=== PATIENT | female | born 1970 | race Caucasian/White ===

== ENCOUNTER 2019-01-29 04:14 | Emergency (ER) | payer MEDICARE, OTHER ==
[~2019-01-29] VITALS: Ht 167.6 cm; Wt 74.8 kg
[~2019-01-29 04:14] MED LIST: BUPR1FIL3 SL; CARI350T PO; CLON2TAB11 PO; GABA800T11 PO; LORA1TAB PO; LORA2TAB PO; METH10TA2 PO; OXYC30TA2; PANT40TA2 PO; SUCR1ORA PO; ZOLP10TA2; ZOLP10TA6 PO
[2019-01-29] MEDS ORDERED: CLONAZEPAM 0.5 MG TABLET PO ONE (04:45)
[2019-01-29] MEDS ORDERED: PROCHLORPERAZINE MALEATE 10 MG TABLET PO ONE (04:45)
--- NOTE | 2019-01-29 04:45 | NUR ---
MD AT BEDSIDE FOR HX AND PHYSICAL
[2019-01-29] MEDS ORDERED: CLONAZEPAM 1 MG TABLET ONE (04:51)
--- NOTE | 2019-01-29 04:51 | NUR ---
PT GOT UP FROM [facility] AND YELLED FROM ROOM: "CAN I GET SOMETHING RIGHT NOW?" PT ABLE TO TOLERATE PO MEDS WENT BACK TO [facility], PT YUDITH MIDDLETONAILSX2 UP, BED AT LOWEST POSITION MONITORED ACCORDINGLY
[2019-01-29] MEDS ORDERED: PROCHLORPERAZINE MALEATE 10 MG TABLET ONE (04:52)
--- NOTE | 2019-01-29 04:57 | NUR ---
PT AMBULATORY W/ STABLE GAIT, WEARING ANKLE SUPPORT ON R ANKLE, AND SOFT CERVICAL COLLAR. PT STATS: " IT HELPS WITH MY HORMONES" ALL BELONGINGS W/ PT Patient discharged to home in stable conditon. Written and verbal after care instructions given. Patient verbalizes understanding of instructions.
[2019-01-29 04:59] VITALS: BP 127/84
== END 2019-01-29 05:01 | disposition home or self-care (01) ==
LOC: ER 04:17 → MERGE 04:17 → ER 05:01
DX: F13.20 Sedative, hypnotic or anxiolytic dependence, uncomplicated (principal); F41.9 Anxiety disorder, unspecified; F41.0 Panic disorder [episodic paroxysmal anxiety]; F32.9 Major depressive disorder, single episode, unspecified; Z90.710 Acquired absence of both cervix and uterus; Z88.8 Allergy status to other drugs, medicaments and biological substances; Z79.899 Other long term (current) drug therapy
CPT/HCPCS: 99283; Q0164; A4663

== ENCOUNTER 2022-03-02 15:30 | Inpatient (IN) | payer MEDICARE, OTHER ==
[~2022-03-02] VITALS: Ht 167.6 cm; Wt 83.9 kg
[~2022-03-02 15:30] MED LIST changes: +METH-817 PO; -METH10TA2 PO
[2022-03-02] MEDS ORDERED: IV NORMAL SALINE 1000 ML BAG IV ONE (15:45)
[2022-03-02] MEDS ORDERED: NALOXONE HCL 0.4 MG/ML AMPUL IV ONE (16:15)
[2022-03-02] MEDS ORDERED: CLON2TAB PO (16:18)
[2022-03-02] MEDS ORDERED: OXYC10TA49 PO (16:18)
[2022-03-02] MEDS ORDERED: ESZO3TAB27 PO (16:18)
[2022-03-02] MEDS ORDERED: BACL20TA PO (16:18)
[2022-03-02] MEDS ORDERED: HYDR-3980 PO (16:18)
[2022-03-02] MEDS ORDERED: PROC10TA13 PO (16:18)
[2022-03-02] MEDS ORDERED: CLOB20TA3 PO (16:18)
[2022-03-02 16:25] LABS: HEMATOCRIT 29.8 % (31.2-41.9); MEAN CORPUSCULAR HEMOGLOBIN 25.1 uug (24.7-32.8); MEAN CORPUSCULAR VOLUME 79.5 fL (75.5-95.3); PLATELET COUNT (AUTO) 145 K/uL (179-408)
[2022-03-02 16:29] LABS: *BILIRUBIN,URIN NEGATIVE (NEGATIVE); *BLOOD, URINE 3+ (NEGATIVE); *CLARITY,URINE CLEAR (CLEAR); *COLOR,URINE YELLOW (YELLOW); *KETONES,URINE NEGATIVE (NEGATIVE); LEUKOCYTE ESTERASE ,URINE TRACE (NEGATIVE); NITRITE, URINE NEGATIVE (NEGATIVE); PH,URINE 6.5 (5.0-8.0); UGLUCOSE NEGATIVE (NEGATIVE)
[2022-03-02] MEDS ORDERED: NALOXONE HCL 0.4 MG/ML AMPUL ONE (16:29)
[2022-03-02 16:36] LABS: CARBON DIOXIDE 29 mmol/L (21-32); CHLORIDE 109 mmol/L (98-107); CREATININE 0.7 mg/dL (0.6-1.3); GLUCOSE 116 mg/dL (74-106); POTASSIUM 3.6 mmol/L (3.5-5.1); UREA NITROGEN, BLOOD 23 mg/dL (7-18)
[2022-03-02 16:49] LABS: ACETAMINOPHEN < 2.0 ug/mL (10-30); ALANINE AMINOTRANSFERASE 30 U/L (14-59); ALKALINE PHOSPHATASE 138 U/L (50-136); ASPARTATE AMINOTRANSFERASE 46 U/L (15-37); BILIRUBIN,DIRECT 0.1 mg/dL (0.0-0.2); BILIRUBIN,TOTAL 0.4 mg/dL (0.2-1.0); TOTAL PROTEIN, SERUM 5.5 g/dL (6.4-8.2)
[2022-03-02 16:51] LABS: ETHANOL < 3 MG/DL (0-0)
[2022-03-02 16:54] LABS: *AMPHETAMINE, URINE NEGATIVE (NEGATIVE); *CANNABINOID, URINE NEGATIVE (NEGATIVE); *COCCAINE, URINE NEGATIVE (NEGATIVE); *OPIATE, URINE POSITIVE (NEGATIVE); *PHENCYCLIDINE SCREEN,URINE NEGATIVE (NEGATIVE)
[2022-03-02] MEDS ORDERED: AZITHROMYCIN IV 500 MG in IV DEXTROSE 5% 250 ML IV ONE (17:00)
[2022-03-02] MEDS ORDERED: CEFTRIAXONE 1 G in IV DEXTROSE 5% 50 ML IV ONE (17:00)
[2022-03-02] MEDS ORDERED: IV NORMAL SALINE 500 ML BAG IV ONE ×3 (17:00→19:45)
[2022-03-02] MEDS ORDERED: CEFTRIAXONE /D5W 50ML IVPB **ER PYXIS IV ONE (17:07)
[2022-03-02] MEDS ORDERED: AZITHROMYCIN 500MG/ D5W 250ML IVPB **ER PYXIS ONLY IV ONE (17:07)
[2022-03-02 17:32] LABS: SQUAMOUS EPITHELIAL CELL,UR FEW /HPF (NONE SEEN); WBC,URINE 0-3 /HPF (0-3)
--- NOTE | 2022-03-02 17:52 | NUR ---
SBP levels are 80's, Dr Douglas notified.
--- NOTE | 2022-03-02 19:01 | NUR ---
Patient remains non-verbal & intermittently moans when position changes were done, pending telemetry bed & nurse at this time. Nursing report given to ER nurse
[2022-03-02] MEDS ORDERED: MAGNESIUM HYDROXIDE 30 ML LIQUID UDC PO PRN (20:45)
[2022-03-02] MEDS ORDERED: LORAZEPAM 2 MG/1 ML VIAL IV PRN (20:45)
[2022-03-02] MEDS ORDERED: MORPHINE SULFATE 4 MG/1 ML DISP.SYRIN IV PRN (20:45)
--- NOTE | 2022-03-02 21:05 | NUR ---
Pt. admitted to telemetry unit room 316, under care of Dr. Love. Report given to MCKENNA Alvarez. Belongs List completed.
--- NOTE | 2022-03-02 21:10 | NUR ---
Received patient from ER via gurney, alert to self in no acute distress. Sinus rhythm on tele. Routine admission care rendered. Oriented to room, BR, TV and call light. Care plan initiated. needs assessed and attended to. Call light placed within easy reach.
[2022-03-02 21:15] VITALS: BP 133/67
[2022-03-02] MEDS: IV NS 1000 ML 1,000 ML IV PRN (21:43)
[2022-03-02] MEDS ORDERED: PIPERACILLIN SODIUM/TAZOBACTAM 3.375 G in IV DEXTROSE 5% 50 ML IV SCH (22:00)
[2022-03-02] MEDS: DOCUSATE SODIUM 100 MG CAPSULE PO SCH (22:59)
[2022-03-03 00:11] VITALS: BP 125/68
[2022-03-03] MEDS ORDERED: PIPERACILLIN SODIUM/TAZO 3.375 GM VIAL ONE (00:29)
[2022-03-03] MEDS: ACETAMINOPHEN 325 MG TABLET PO PRN ×2 (03:05→17:15)
[2022-03-03 04:00] VITALS: BP 111/55
[2022-03-03] MEDS: PANTOPRAZOLE SODIUM 40 MG TABLET.DR PO SCH (06:16)
[2022-03-03 07:02] LABS: HEMATOCRIT 27.3 % (31.2-41.9); MEAN CORPUSCULAR HEMOGLOBIN 25.9 uug (24.7-32.8); MEAN CORPUSCULAR VOLUME 80.6 fL (75.5-95.3); PLATELET COUNT (AUTO) 136 K/uL (179-408)
[2022-03-03] MEDS: PIPERACILLIN SODIUM/TAZOBACTAM 3.375 G in IV DEXTROSE 5% 100 ML IV SCH ×4 (07:12→22:00)
[2022-03-03 07:27] LABS: ALANINE AMINOTRANSFERASE 27 U/L (14-59); ALKALINE PHOSPHATASE 119 U/L (50-136); ASPARTATE AMINOTRANSFERASE 42 U/L (15-37); BILIRUBIN,TOTAL 0.4 mg/dL (0.2-1.0); CARBON DIOXIDE 26 mmol/L (21-32); CHLORIDE 110 mmol/L (98-107); CHOLESTEROL 117 mg/dL (<200); CREATININE 0.5 mg/dL (0.6-1.3); GLUCOSE 97 mg/dL (74-106); HDL CHOLESTEROL 42 mg/dL (40-60); MAGNESIUM 1.7 mg/dL (1.8-2.4); PHOSPHOROUS 2.6 mg/dL (2.5-4.9); POTASSIUM 3.4 mmol/L (3.5-5.1); TOTAL PROTEIN, SERUM 4.9 g/dL (6.4-8.2); TRIGLYCERIDES 77 MG/DL (30-150); UREA NITROGEN, BLOOD 17 mg/dL (7-18)
[2022-03-03 07:28] LABS: IRON, SERUM 9 ug/dL (50-175)
[2022-03-03 07:42] LABS: THYROID STIMULATING HORMONE 1.167 mIU/mL (0.358-3.740)
[2022-03-03 08:20] VITALS: BP 80/41
[2022-03-03] MEDS: GABAPENTIN 400 MG CAPSULE PO SCH ×3 (09:11→17:08)
[2022-03-03] MEDS ORDERED: MAGNESIUM OXIDE 400 MG TABLET PO ONE (09:30)
[2022-03-03] MEDS ORDERED: POTASSIUM CHLORIDE 20 MEQ TAB.PRT.SR PO ONE (09:45)
[2022-03-03] MEDS ORDERED: IV NS 1000 ML 1,000 ML IV ONE (10:15)
--- NOTE | 2022-03-03 10:56 | NUR ---
Pt's BP is low, notified MD, administered NS 1liter bolus. Will reassess and monitor pt. No complaints of dizziness, intermittently sleeping but easily arousable.
[2022-03-03 11:57] VITALS: BP 80/41
[2022-03-03] MEDS ORDERED: CLON1TAB12 PO (12:11)
[2022-03-03] MEDS ORDERED: PREG200C28 PO (12:20)
[2022-03-03] MEDS ORDERED: TIZA4TAB5 PO (12:20)
[2022-03-03] MEDS ORDERED: DEXT10TA19 PO (12:20)
--- NOTE | 2022-03-03 13:00 | NUR ---
Pt yelling constantly, reoriented pt but resumes yelling a few minutes later. Pt is a/o x 1, forgetful, aggitated. Psych consult completed and medications adjusted per MD. Pt IV site infiltrated, placed ice pack and elevated. Removed IV access, Zosyn unable to administer due to no IV. Requested midline insertion, multiple PIV attempts, no viable veins, pt noncompliant.
[2022-03-03] MEDS ORDERED: CLONAZEPAM 0.5 MG TABLET PO SCH (14:00)
[2022-03-03] MEDS: PREGABALIN 100 MG CAPSULE PO SCH ×2 (14:59→17:09)
[2022-03-03] MEDS: LORAZEPAM 1 MG TABLET PO SCH ×2 (14:59→21:00)
[2022-03-03] MEDS ORDERED: LORAZEPAM 1 MG TABLET PO SCH (15:00)
--- NOTE | 2022-03-03 15:43 | NUR ---
Social work consult was requested for a patient on [facility] for substance abuse resources. Patient is 51-year-old female admitted to the hospital for encephalopathy and sepsis. Patient is alert and oriented X1. Patient appears confused and disoriented. Patient could not state the date, location, or situation. Patient appears lethargic. Patient presents with depressed mood and congruent affect. SW was unable to ascertain primary contact information. SW was unable to ascertain history of substance abuse. SW was unable to ascertain history of psychiatric diagnosis. SW will follow up with patient to provide resources.
[2022-03-03 17:08] VITALS: BP 94/39
[2022-03-03 20:00] VITALS: BP 86/33
[2022-03-03] MEDS: DOCUSATE SODIUM 100 MG CAPSULE PO SCH (21:00)
[2022-03-04] VITALS: BP 136/62
[2022-03-04] MEDS ORDERED: MORPHINE SULFATE 2 MG/1 ML DISP.SYRIN IM PRN (02:00)
[2022-03-04] MEDS: LORAZEPAM 1 MG TABLET PO SCH ×4 (04:12→21:03)
--- NOTE | 2022-03-04 06:00 | NUR ---
[id number] CONT. WITH STABLE VS. PT HAD LOW BP AT BEGINNING OF SHIFT WITH SYSTOLIC OF 86. PT RECEIVED NS FLUID BOLUS(1L-STARTED ON PREVIOUS SHIFT). BP HAS BEEN IMPROVING WITH BP SYSTOLIC OF 136(TAKEN ON RIGHT L.LEG). PT HAS BEEN CONFUSED AND VERY AGITATED. PT ALSO HAD C/O PAIN VIA LEFT LEG. PT'S LEFT HIP HAS REDNESS AND TENDERNESS. RADIOLOGIST PHYSICIAN CESAR INFORMED AND STATED THAT SHE WILL EVAL PT IN AM. PT C/O SEVERE PAIN FROM LEFT LEG. CHRIS SY CONTACTED AND ORDERED MS 2MG IVP Q4HRS PRN C/O PAIN AND DUPLEX OF SHANTAL LOWER EXTREMITIES. PT HAS F/C I/P-U/O IS >500CC-FIDELINA/CLR. PT MED WITH MS 2MG SLOW IVP. PT STATES RELIEF AFTER MED. PT ALSO REQUESTED MED FOR SLEEP. PT HAS ORD. FOR ATIVAN(WAS HELD EARLIER DUE TO PT'S LOW BP). PHARM. CONTACTED AND STATED THAT IT WAS OK FOR PT TO HAVE ATIVAN 2MG PO. PT SLIGHTLY LESS AGITATED BUT CONT. TO USE THE CALL LIGHT FREQUENTLY AND PT ALSO STATES THAT SHE WANTS TO GO HOME. N.SUPERV CONTACTED EARLIER ALSO TO EVAL PT BECAUSE SHE KEPT STATING THAT SHE WANTED TO LEAVE NOW BUT N.SUPERV. MARGARETTE WITNESSED THAT THE PT'S GAIT WAS UNSTABLE. PT ALSO HAS BEEN SLIGHT CONFUSED AT TIMES BUT SHE IS AWARE THAT SHE IS IN THE HOSPITAL. GEN. COND HAS BEEN STABLE BUT GUARDED. PT ENDORSED TO MAGGIE FITZGERALD RN
[2022-03-04] MEDS: PIPERACILLIN SODIUM/TAZOBACTAM 3.375 G in IV DEXTROSE 5% 100 ML IV SCH ×3 (06:32→22:11)
[2022-03-04] MEDS: PANTOPRAZOLE SODIUM 40 MG TABLET.DR PO SCH (06:50)
[2022-03-04 07:51] LABS: HEMATOCRIT 27.4 % (31.2-41.9); MEAN CORPUSCULAR HEMOGLOBIN 25.5 uug (24.7-32.8); MEAN CORPUSCULAR VOLUME 78.6 fL (75.5-95.3); PLATELET COUNT (AUTO) 143 K/uL (179-408)
[2022-03-04 08:14] VITALS: BP 104/51
[2022-03-04 08:16] LABS: BILIRUBIN,DIRECT 0.1 mg/dL (0.0-0.2); BILIRUBIN,TOTAL 0.3 mg/dL (0.2-1.0); CREATININE 0.6 mg/dL (0.6-1.3); MAGNESIUM 1.6 mg/dL (1.8-2.4); PHOSPHOROUS 3.1 mg/dL (2.5-4.9); POTASSIUM 3.5 mmol/L (3.5-5.1); TOTAL PROTEIN, SERUM 5.2 g/dL (6.4-8.2)
[2022-03-04] MEDS: PREGABALIN 100 MG CAPSULE PO SCH ×3 (08:57→16:47)
[2022-03-04] MEDS: GABAPENTIN 400 MG CAPSULE PO SCH ×3 (08:58→16:47)
[2022-03-04] MEDS: MORPHINE SULFATE 2 MG/1 ML DISP.SYRIN IV PRN ×3 (08:59→20:29)
[2022-03-04] MEDS ORDERED: MAGNESIUM OXIDE 400 MG TABLET PO ONE (09:15)
--- NOTE | 2022-03-04 10:50 | NUR ---
Social work consult was requested for a patient on [facility] for substance abuse resources. Patient is 51-year-old female. Patient is alert and oriented X4. Patient appears lethargic. Patient presents with anxious mood and congruent affect. Patient states her primary supervisor contact and service clerks is her sister, Kaylin Rivas. ELIZABET was unable to ascertain the contact information because patient does not have her phone at the hospital. Patient states she has two caregivers from [facility], Destini Navarro and Dahiana that are taking care of her cats while she is in the hospital. Patient states that she lives at [address] [address]. The patient states she is receiving disability and she is currently not driving. Patient denies a history of substance abuse. The toxicology report is positive for opiates and benzodiazepines but the patient states her cat scratched her arm but the scratch is clearly noted along the vein line and is consistent with a track flavio consistent with IV heroin abuse. Patient states she is getting the medication prescribed by her doctor. ELIZABET provided patient medication-assisted treatment referrals from [address] [address] ([phone]), [address] [address] ([phone]), [facility] [address] . ELIZABET placed the resources in the patients chart. Patient appeared unmotivated for treatment. Patient states she has a history of anxiety and ADHD and has a psychiatrist, Dr. Tristan Guevara, that she sees once a month. ELIZABET provided the patient with mental health resource for [facility] [address] [facility] , [place] [address] ([phone]). Patient denies suicidal or homicidal ideation. Patient states her discharge plan is to go home to [address] [place] [address].
[2022-03-04 11:37] VITALS: BP 82/41
[2022-03-04 16:30] VITALS: BP 86/37
--- NOTE | 2022-03-04 18:12 | NUR ---
Patient tolerated care well throughout shift with pain managed through medicinal interventions. IV site patent and intact. Patient requesting to leave but being educated about the possibilities if patient decides to leave against medical advice. Patient requesting to speak to Jeanna PEREZ but has already been spoken to on numerous other visits. Bed left in lowest position with call light within reach. Comfort measures provided. Will endorse information to PM nurse.
[2022-03-04 20:00] VITALS: BP 98/54
[2022-03-04] MEDS: DOCUSATE SODIUM 100 MG CAPSULE PO SCH (21:03)
[2022-03-04] MEDS: IV NS 1000 ML 1,000 ML IV PRN (23:01)
[2022-03-05 04:00] VITALS: BP 97/56
[2022-03-05] MEDS: PIPERACILLIN SODIUM/TAZOBACTAM 3.375 G in IV DEXTROSE 5% 100 ML IV SCH ×3 (05:51→22:04)
[2022-03-05] MEDS: MORPHINE SULFATE 2 MG/1 ML DISP.SYRIN IV PRN ×2 (06:03→09:13)
[2022-03-05 06:53] LABS: HEMATOCRIT 26.4 % (31.2-41.9); MEAN CORPUSCULAR HEMOGLOBIN 25.5 uug (24.7-32.8); MEAN CORPUSCULAR VOLUME 78.5 fL (75.5-95.3); PLATELET COUNT (AUTO) 157 K/uL (179-408)
[2022-03-05] MEDS: PANTOPRAZOLE SODIUM 40 MG TABLET.DR PO SCH (07:03)
[2022-03-05 07:05] LABS: CARBON DIOXIDE 28 mmol/L (21-32); CHLORIDE 108 mmol/L (98-107); CREATININE 0.5 mg/dL (0.6-1.3); GLUCOSE 103 mg/dL (74-106); MAGNESIUM 1.9 mg/dL (1.8-2.4); PHOSPHOROUS 3.8 mg/dL (2.5-4.9); POTASSIUM 3.2 mmol/L (3.5-5.1); UREA NITROGEN, BLOOD 7 mg/dL (7-18)
[2022-03-05] MEDS: LORAZEPAM 1 MG TABLET PO SCH ×4 (08:55→20:45)
[2022-03-05] MEDS: PREGABALIN 100 MG CAPSULE PO SCH ×3 (08:55→17:43)
[2022-03-05] MEDS: GABAPENTIN 400 MG CAPSULE PO SCH ×3 (08:57→17:43)
[2022-03-05] MEDS ORDERED: POTASSIUM CHLORIDE 20 MEQ TAB.PRT.SR PO ONE (10:00)
--- NOTE | 2022-03-05 10:39 | NUR ---
Clinical Social Work Note: ELIZABET made an APS report Intake ID # [id number] for suspicion of self-neglect. ELIZABET placed a copy in the patients chart.
[2022-03-05] MEDS: IV NS 1000 ML 1,000 ML IV PRN (10:51)
[2022-03-05] MEDS ORDERED: IV NS 1000 ML 1,000 ML IV ONE (11:15)
[2022-03-05 11:35] VITALS: BP 94/62
[2022-03-05] MEDS: ACETAMINOPHEN 325 MG TABLET PO PRN (15:18)
[2022-03-05 15:32] VITALS: BP 106/42
[2022-03-05 16:12] VITALS: BP 106/42
[2022-03-05] MEDS: DOCUSATE SODIUM 100 MG CAPSULE PO SCH (20:45)
[2022-03-05] MEDS ORDERED: MIRT-119 PO (23:45)
[2022-03-06] MEDS ORDERED: MIRTAZAPINE 15 MG TABLET PO SCH
[2022-03-06] MEDS: IV NS 1000 ML 1,000 ML IV PRN (04:21)
[2022-03-06] MEDS: PIPERACILLIN SODIUM/TAZOBACTAM 3.375 G in IV DEXTROSE 5% 100 ML IV SCH (05:30)
[2022-03-06] MEDS: PANTOPRAZOLE SODIUM 40 MG TABLET.DR PO SCH (06:28)
--- NOTE | 2022-03-06 06:50 | NUR ---
Patient requested Remeron 30 mg as she is taking this med at home, Leonor PEREZ notified and gave order. Patient refused diaper change at [id number], stated she just want to sleep. Call light placed within easy reach. Kept bed in locked and low position.
[2022-03-06 07:25] LABS: HEMATOCRIT 26.9 % (31.2-41.9); MEAN CORPUSCULAR HEMOGLOBIN 25.4 uug (24.7-32.8); MEAN CORPUSCULAR VOLUME 77.4 fL (75.5-95.3); PLATELET COUNT (AUTO) 225 K/uL (179-408)
--- NOTE | 2022-03-06 07:47 | NUR ---
Rec'd patient in bed, asleep, no respiratory distress noted; skin warm and dry to the touch. Patient able to wake up on verbal commands, patient denies any pain or discomfort, and prefers not to be bother at this time as she would like to continue sleeping. IV RFA infusing well, site intact. Safety measures in place and call light within reach; patient continues under 1:1 supervision and at bedside.
[2022-03-06 08:06] LABS: CREATININE 0.6 mg/dL (0.6-1.3); MAGNESIUM 1.8 mg/dL (1.8-2.4); PHOSPHOROUS 3.8 mg/dL (2.5-4.9); POTASSIUM 3.8 mmol/L (3.5-5.1)
[2022-03-06] MEDS: LORAZEPAM 1 MG TABLET PO SCH (08:52)
[2022-03-06] MEDS: PREGABALIN 100 MG CAPSULE PO SCH (08:52)
[2022-03-06] MEDS: GABAPENTIN 400 MG CAPSULE PO SCH (09:07)
[2022-03-06] MEDS ORDERED: DOXY-226 PO (10:20)
[2022-03-06] MEDS ORDERED: LORA-259 PO ×2 (10:20)
[2022-03-06 10:46] VITALS: BP 100/26
--- NOTE | 2022-03-06 11:59 | NUR ---
1100-Patient with orders to DC home, as per her request/FRETTED INSTRUMENTS INSPECTOR Jeanna King; patient was seen and evaluated by Psychiatrist, Adis BATISTA. and based on 's Adis's notes patient " She seems to be lucid and coherent. She seems to be cognitively intact and able to make her own decisions." Discharge education and education materials provided with good verbal understanding demonstration return. Per FRETTED INSTRUMENTS INSPECTOR Jeanna OSMAN hair catheter and DC mid line prior DC'NG patient. Mid line to MARILU single lumen dc'd, direct pressure applied to puncture site with no bleeding noted. Hair catheter dc'd arun. well, patient denies any discomfort/bladder discomfort, no hematuria. Diaper changed/cared provided. Discharge paperwork prepared, signed/inventory list signed. 12:10-Patient was picked up by caregiver (PERRY), patient was accompanied down to the car safely with all belongings. Patient left in good stable conditions, alert/oriented, denies pain. No respiratory distress noted. ARDEN INFANTE 2021 14:54
[2022-03-06] MEDS ORDERED: LORAZEPAM 1 MG TABLET PO SCH (21:00)
[2022-03-08] MEDS ORDERED: LORAZEPAM 1 MG TABLET PO SCH (09:00)
== END 2022-03-06 12:15 | disposition home or self-care (01) | DRG 871 ==
LOC: ER 15:30 → TELE3 19:33 → MEDSURG3 03-04 08:10
PROVIDERS: ADMIT Registered Nurse; ATTEND Registered Nurse
PROC: 05H633Z Insertion of Infusion Device into Left Subclavian Vein, Percutaneous Approach (ICD-10-PCS; principal; 2022-03-02)
PROC: B547ZZA Ultrasonography of Left Subclavian Vein, Guidance (ICD-10-PCS; 2022-03-02)
PROC: 05H533Z Insertion of Infusion Device into Right Subclavian Vein, Percutaneous Approach (ICD-10-PCS; 2022-03-03)
PROC: B546ZZA Ultrasonography of Right Subclavian Vein, Guidance (ICD-10-PCS; 2022-03-03)
DX: A41.9 Sepsis, unspecified organism (principal); G92.8 Other toxic encephalopathy; J96.01 Acute respiratory failure with hypoxia; R65.21 Severe sepsis with septic shock; J15.9 Unspecified bacterial pneumonia; F13.231 Sedative, hypnotic or anxiolytic dependence with withdrawal delirium; N39.0 Urinary tract infection, site not specified; F11.23 Opioid dependence with withdrawal; G40.909 Epilepsy, unspecified, not intractable, without status epilepticus; D64.9 Anemia, unspecified; E66.9 Obesity, unspecified; M79.7 Fibromyalgia; R29.6 Repeated falls; Z82.49 Family history of ischemic heart disease and other diseases of the circulatory system; Z83.3 Family history of diabetes mellitus; Z96.642 Presence of left artificial hip joint; G89.29 Other chronic pain; M19.90 Unspecified osteoarthritis, unspecified site; F90.9 Attention-deficit hyperactivity disorder, unspecified type; F10.10 Alcohol abuse, uncomplicated; Z68.29 Body mass index [BMI] 29.0-29.9, adult; F32.A Depression, unspecified; Z87.19 Personal history of other diseases of the digestive system; F32.9 Major depressive disorder, single episode, unspecified
CPT/HCPCS: 36415; 51702; 70450; 71045; 73501; 83550; 83605; 83735; 84100; 84443; 84484; 85025; 85730; 86803; 87040; 87806; 93005; A4663; G0378; G0480; J0456; J0696; J2060; J2270; J2310; J2543; J7040

== ENCOUNTER 2022-05-13 01:19 | Inpatient (IN) | payer MEDICARE, OTHER ==
[~2022-05-13] VITALS: Ht 167.6 cm; Wt 70.3 kg
[~2022-05-13 01:19] MED LIST changes: -BUPR1FIL3 SL; -CARI350T PO; -CLON2TAB11 PO; +DOXY-226 PO; +LORA-259 PO; -LORA1TAB PO; -LORA2TAB PO; -METH-817 PO; +MIRT-119 PO; -OXYC30TA2; -PANT40TA2 PO; +PREG200C28 PO; -SUCR1ORA PO; +TIZA4TAB5 PO; -ZOLP10TA2; -ZOLP10TA6 PO
[2022-05-13] MEDS ORDERED: HYDROMORPHONE 1 MG/1 ML DISP.SYRIN IVP ONE (01:30)
[2022-05-13] MEDS ORDERED: KETOROLAC TROMETHAMINE 15 MG INJ IVP ONE (01:30)
[2022-05-13] MEDS ORDERED: IV NORMAL SALINE 1000 ML BAG IV ONE (01:30)
[2022-05-13 02:14] LABS: HEMATOCRIT 35.1 % (31.2-41.9); MEAN CORPUSCULAR HEMOGLOBIN 25.9 uug (24.7-32.8); MEAN CORPUSCULAR VOLUME 81.8 fL (75.5-95.3); PLATELET COUNT (AUTO) 366 K/uL (179-408)
[2022-05-13 02:18] LABS: CREATININE 0.6 mg/dL (0.6-1.3); POTASSIUM 2.9 mmol/L (3.5-5.1)
--- NOTE | 2022-05-13 02:20 | NUR ---
Xray at bedside.
[2022-05-13 02:23] LABS: BILIRUBIN,DIRECT 0.2 mg/dL (0.0-0.2); BILIRUBIN,TOTAL 0.6 mg/dL (0.2-1.0); TOTAL PROTEIN, SERUM 6.8 g/dL (6.4-8.2)
[2022-05-13] MEDS ORDERED: POTASSIUM BICARBONATE/CIT AC 25 MEQ TABLET.EFF PO ONE (02:30)
[2022-05-13] MEDS ORDERED: VANCOMYCIN IV 1,000 MG in IV DEXTROSE 5% 250 ML IV ONE (03:00)
[2022-05-13] MEDS ORDERED: PIPERACILLIN SODIUM/TAZOBACTAM 4.5 G in IV DEXTROSE 5% 50 ML IV SCH (03:00)
[2022-05-13 03:06] LABS: *BILIRUBIN,URIN NEGATIVE (NEGATIVE); *CLARITY,URINE CLEAR (CLEAR); *COLOR,URINE YELLOW (YELLOW); *KETONES,URINE 1+ (NEGATIVE); LEUKOCYTE ESTERASE ,URINE 1+ (NEGATIVE); NITRITE, URINE NEGATIVE (NEGATIVE); UGLUCOSE NEGATIVE (NEGATIVE)
[2022-05-13 03:07] LABS: *BLOOD, URINE TRACE (NEGATIVE)
[2022-05-13 03:09] LABS: BACTERIA,URINE FEW /HPF (NONE SEEN); SQUAMOUS EPITHELIAL CELL,UR FEW /HPF (NONE SEEN)
[2022-05-13 03:15] LABS: *AMPHETAMINE, URINE NEGATIVE (NEGATIVE); *CANNABINOID, URINE NEGATIVE (NEGATIVE); *COCCAINE, URINE NEGATIVE (NEGATIVE); *OPIATE, URINE NEGATIVE (NEGATIVE); *PHENCYCLIDINE SCREEN,URINE NEGATIVE (NEGATIVE)
--- NOTE | 2022-05-13 03:23 | NUR ---
Attempted IV insertion x2, unable to insert IV. Patient is hardstick.
--- NOTE | 2022-05-13 04:04 | NUR ---
Trey Peres attempted IV insertion, unsuccessful.
[2022-05-13] MEDS ORDERED: POTASSIUM BICARBONATE/CIT AC 25 MEQ TABLET.EFF ONE (04:34)
--- NOTE | 2022-05-13 04:43 | NUR ---
Dr Cleveland spoke to [facility] director selection and administration. Pending admission.
[2022-05-13] MEDS ORDERED: ACETAMINOPHEN 325 MG TABLET PO PRN (04:45)
[2022-05-13] MEDS ORDERED: MAGNESIUM HYDROXIDE 30 ML LIQUID UDC PO PRN (04:45)
[2022-05-13] MEDS ORDERED: REMEDY ESSENTIAL ZINC PASTE 113 GM TP PRN (04:45)
--- NOTE | 2022-05-13 04:50 | NUR ---
Patient has been admitted by Zohaib Chaparro NP. Awaiting admission.
[2022-05-13] MEDS ORDERED: KETOROLAC TROMETHAMINE 15 MG INJ ONE (05:00)
[2022-05-13] MEDS ORDERED: HYDROMORPHONE 1 MG/1 ML DISP.SYRIN ONE ×3 (05:00→14:24)
[2022-05-13] MEDS ORDERED: PIPERACILLIN/TAZO 4.5 GM VIAL IV ONE (05:16)
[2022-05-13] MEDS ORDERED: CHLORDIAZEPOXIDE HCL 25 MG CAPSULE PO ONE (05:30)
[2022-05-13] MEDS ORDERED: CHLORDIAZEPOXIDE HCL 25 MG CAPSULE ONE (05:39)
[2022-05-13] MEDS ORDERED: VANCOMYCIN IV 200 ML ONE ×2 (05:39→17:07)
--- NOTE | 2022-05-13 06:11 | NUR ---
Called third floor for bed. Currently no beds avaliable. Waiting call back for bed assignment
--- NOTE | 2022-05-13 06:35 | NUR ---
Piperacillin 3.375g IV in 5% Dextrose 50ml completed 05/13/22 06:15
--- NOTE | 2022-05-13 07:21 | NUR ---
Report given to Gale ANDRES
--- NOTE | 2022-05-13 07:25 | NUR ---
Received endorsement from Ruthie ANDRES.
[2022-05-13] MEDS ORDERED: PANTOPRAZOLE SODIUM 40 MG TABLET.DR PO ONE (07:42)
[2022-05-13] MEDS: PANTOPRAZOLE SODIUM 40 MG TABLET.DR PO SCH (07:43)
[2022-05-13] MEDS: HYDROMORPHONE 1 MG/1 ML DISP.SYRIN IV PRN ×3 (07:53→20:35)
--- NOTE | 2022-05-13 08:00 | NUR ---
Report given to Liyah ANDRES.
[2022-05-13 08:14] LABS: CREATININE 0.6 mg/dL (0.6-1.3); POTASSIUM 3.5 mmol/L (3.5-5.1)
--- NOTE | 2022-05-13 08:22 | NUR ---
Tried calling the caregiver x3 and it was straight to voicemail. Pt made aware.
--- NOTE | 2022-05-13 08:29 | NUR ---
Sea Air Land Officer Rhea made aware of pt to r/o TB, according to her she needs to be transfered to [facility] for negative pressure isolation room.
--- NOTE | 2022-05-13 08:35 | NUR ---
Khang RT tried to collect sputum, pt wasn't very cooperative, stated "I cannot cough up". Left the sputum container at the bedside and taught her of spiting to the container when she coughs.
--- NOTE | 2022-05-13 09:29 | NUR ---
Left message for Dr Wells, Ortho, per Dr Douglas request.
[2022-05-13] MEDS ORDERED: MORPHINE SULFATE 2 MG/1 ML DISP.SYRIN IV ONE ×2 (09:30→12:45)
[2022-05-13] MEDS ORDERED: MORPHINE SULFATE 4 MG/1 ML DISP.SYRIN ONE ×2 (09:41→12:43)
--- NOTE | 2022-05-13 09:47 | NUR ---
Administered Morphine 4mg for pain 12/09 - per pt. BP 126/68, RR 20.
--- NOTE | 2022-05-13 09:50 | NUR ---
Pt's sister, Kaylin, #[phone]. Called x3 and there was no answer.
[2022-05-13] MEDS ORDERED: PROPOFOL 200 MG/20 ML BOTTLE IV ONE (11:00)
[2022-05-13] MEDS ORDERED: PROPOFOL 200 MG/20 ML BOTTLE ONE ×2 (11:26→11:54)
--- NOTE | 2022-05-13 12:20 | NUR ---
Started the Closed Reduction of the Left Hip with Moderate Sedation with Dr. Lewis, 2 RNs and 3 RTs at around 1130. Pt received 230mg of Diprivan and 500ml of NS for hydration. Procedure was done at 1210 and was unsuccessful with the Closed Reduction of the Left Hip. Pt started to gain consciousness after 10mins. AOx3, circulation WNL, skin condition is warm, dry and flaky, V/S is WNL. Pt complained of pain of the L hip 9/10, Haldol 0.5ml and Morphine 4mg were given. Pt well tolerated.
[2022-05-13] MEDS ORDERED: PIPERACILLIN/TAZOBACTAM/D5W 50 ML IV ONE (12:22)
[2022-05-13] MEDS ORDERED: HALOPERIDOL LACTATE 5 MG/1 ML VIAL ONE (12:23)
[2022-05-13] MEDS ORDERED: HALOPERIDOL LACTATE 5 MG/1 ML VIAL IV ONE (12:30)
[2022-05-13] MEDS: PIPERACILLIN SODIUM/TAZOBACTAM 3.375 G in IV DEXTROSE 5% 50 ML IV SCH ×2 (12:38→18:59)
--- NOTE | 2022-05-13 12:58 | NUR ---
Gave pt 0.5ml of Haldol.
--- NOTE | 2022-05-13 14:40 | NUR ---
Called and left a voicemail for the criminal justice department chair per pt's request.
--- NOTE | 2022-05-13 15:21 | NUR ---
Kaylin Rivas - pt's sister called. Pt had several hx of fall, was at [facility] a month and a half ago d/t hip dislocation and sepsis. Next of kin also stated that the pt have psych issues but was not certain of the diagnoses. Pt also has been self-neglecting and has been passing out a lot of times. Will call back once there's an update for pt's transfer.
[2022-05-13] MEDS: VANCOMYCIN IV 1,000 MG in IV DEXTROSE 5% 250 ML IV SCH (17:13)
--- NOTE | 2022-05-13 17:25 | NUR ---
Gave report to Myla ANDRES.
[2022-05-13 18:44] VITALS: BP 99/77
--- NOTE | 2022-05-13 19:08 | NUR ---
Patient is admitted to room 322 from ED. S/P fall at home with left hip fracture. She is alert and oriented x3. Skin is dry and warm to touch noted with abrasion on her right elbow both knees, old surgical scar on abdomen and right knee. Patient is oriented to room and call light same within reach made comfortable.
[2022-05-13 20:00] VITALS: BP 116/62
[2022-05-13] MEDS: LORAZEPAM 2 MG/1 ML VIAL IV PRN (23:46)
[2022-05-13] MEDS: MIRTAZAPINE 15 MG TABLET PO SCH (23:46)
[2022-05-14] VITALS: BP 127/57
[2022-05-14] MEDS: IV 1/2NS 1000 ML 1,000 ML IV PRN (00:18)
[2022-05-14] MEDS: PIPERACILLIN SODIUM/TAZOBACTAM 3.375 G in IV DEXTROSE 5% 50 ML IV SCH ×4 (00:18→18:13)
[2022-05-14] MEDS: GUAIFENESIN/DEXTROMETHORPHAN 5 ML UDC PO PRN ×3 (01:10→18:15)
[2022-05-14] MEDS: HYDROMORPHONE 1 MG/1 ML DISP.SYRIN IM PRN ×4 (01:13→13:45)
[2022-05-14] MEDS: VANCOMYCIN IV 1,000 MG in IV DEXTROSE 5% 250 ML IV SCH (03:25)
[2022-05-14 04:00] VITALS: BP 100/44
--- NOTE | 2022-05-14 06:00 | NUR ---
Slept intermittently. Pt complaining of 10/10 pain. Applied ice pack on L hip. Administered Dilaudid as ordered. Had low grade fever of 99.8. Tylenol given as ordered. Rechecked temp 98.8F. Reinserted IV on L hand 22 g intact and patent. Busby cath intact and draining well. Will endorse to incoming shift.
[2022-05-14] MEDS: PANTOPRAZOLE SODIUM 40 MG TABLET.DR PO SCH (06:24)
[2022-05-14 07:07] LABS: HEMATOCRIT 26.9 % (31.2-41.9); MEAN CORPUSCULAR HEMOGLOBIN 26.5 uug (24.7-32.8); MEAN CORPUSCULAR VOLUME 81.5 fL (75.5-95.3); PLATELET COUNT (AUTO) 264 K/uL (179-408)
[2022-05-14 07:38] LABS: BILIRUBIN,TOTAL 0.3 mg/dL (0.2-1.0); CREATININE 0.7 mg/dL (0.6-1.3); MAGNESIUM 1.8 mg/dL (1.8-2.4); PHOSPHOROUS 3.3 mg/dL (2.5-4.9); POTASSIUM 3.2 mmol/L (3.5-5.1)
[2022-05-14 08:52] LABS: CREATINE KINASE, TOTAL 262 U/L (26-192)
[2022-05-14] MEDS ORDERED: POTASSIUM CHLORIDE 20 MEQ TAB.PRT.SR PO ONE (10:00)
[2022-05-14 12:00] VITALS: BP 120/72
[2022-05-14] MEDS ORDERED: MIRT-94 PO (12:35)
[2022-05-14] MEDS ORDERED: LEVE500T9 PO (12:35)
[2022-05-14] MEDS ORDERED: CLON1TAB12 PO (12:35)
[2022-05-14] MEDS ORDERED: CLOB20TA PO (12:35)
[2022-05-14] MEDS ORDERED: ESZO3TAB27 PO (12:35)
[2022-05-14] MEDS ORDERED: BACL20TA PO (12:35)
[2022-05-14] MEDS: LORAZEPAM 2 MG/1 ML VIAL IV PRN ×2 (14:28→20:39)
--- NOTE | 2022-05-14 15:15 | NUR ---
Social work consult was requested for a patient on [facility] for self-neglect and substance abuse. Patient is 51-year-old female admitted to the hospital for hip dislocation because she fell out of bed and reinjured her left hip. Per MD report, patients living conditions are poor, and ELIZABET made an APS report Intake ID [id number] and placed a copy in the patients chart. Patient is alert and oriented X4 and presents with anxious mood and congruent affect. Patient states her primary contact center director is her sister, Kaylin Rivas ([phone]). Patient states she has two caregivers from [facility], Destini Navarro ([phone]) and Dahiana that are taking care of her cats while she is in the hospital. Patient states that she lives at [address] [place] [address] and has applied for section 8 housing. The patient states she is receiving disability, she is currently not driving, and has a cane, walker, and commode at home. Patient denies a history of substance abuse. The toxicology report is positive for benzodiazepines and SW provided patient ELIZABET provided the patient with substance abuse resources for resources to [address] [place] [address] ([phone]), [facility] [address] [facility] [address] ([phone]), and [address] [address] ([phone]). ELIZABET placed the resources in the patients chart. Patient appeared unmotivated for treatment. Patient states she has a history of anxiety and depression, and ELIZABET provided the patient with mental health resource for [facility] [address], [place] [address] ([phone]). Patient denies suicidal or homicidal ideation. ELIZABET asked if she would like SNF placement and patient refused. Patient states her discharge plan is to go home to [address] [place] [address].
[2022-05-14 16:00] VITALS: BP 111/62
--- NOTE | 2022-05-14 16:00 | NUR ---
Patient's hair was leaking, a new hair has been placed by me today.
[2022-05-14] MEDS: VANCOMYCIN IV 1,250 MG in IV DEXTROSE 5% 250 ML IV SCH (16:59)
[2022-05-14] MEDS: HYDROMORPHONE 1 MG/1 ML DISP.SYRIN IV PRN (18:15)
[2022-05-14 20:00] VITALS: BP 106/54
[2022-05-14] MEDS: MIRTAZAPINE 15 MG TABLET PO SCH (20:38)
[2022-05-15 00:16] VITALS: BP 126/55
[2022-05-15] MEDS: HYDROMORPHONE 1 MG/1 ML DISP.SYRIN IV PRN ×4 (00:46→18:51)
[2022-05-15] MEDS: GUAIFENESIN/DEXTROMETHORPHAN 5 ML UDC PO PRN ×2 (00:55→10:55)
[2022-05-15] MEDS: PIPERACILLIN SODIUM/TAZOBACTAM 3.375 G in IV DEXTROSE 5% 50 ML IV SCH ×4 (00:57→18:50)
[2022-05-15 04:00] VITALS: BP 130/65
[2022-05-15] MEDS: VANCOMYCIN IV 1,250 MG in IV DEXTROSE 5% 250 ML IV SCH ×2 (04:00→16:01)
--- NOTE | 2022-05-15 05:01 | NUR ---
pt pulled out iv .New iv inserted lt hand #24 g.pt medicated for pain .pt had a lrge bm in bed,cleaned made comfortable.
[2022-05-15] MEDS: PANTOPRAZOLE SODIUM 40 MG TABLET.DR PO SCH (06:53)
[2022-05-15 06:56] LABS: CARBON DIOXIDE 29 mmol/L (21-32); CHLORIDE 107 mmol/L (98-107); CREATININE 0.5 mg/dL (0.6-1.3); GLUCOSE 108 mg/dL (74-106); POTASSIUM 3.4 mmol/L (3.5-5.1); UREA NITROGEN, BLOOD 5 mg/dL (7-18)
[2022-05-15] MEDS ORDERED: POTASSIUM CHLORIDE 20 MEQ TAB.PRT.SR PO ONE (09:30)
[2022-05-15] MEDS ORDERED: Medication Not On Formulary EA (Eszopiclone (Lunesta) 3 MG) PO PRN (11:30)
[2022-05-15] MEDS ORDERED: CLONAZEPAM 1 MG TABLET PO PRN ×2 (11:30→11:45)
[2022-05-15 11:40] VITALS: BP 135/48
[2022-05-15] MEDS ORDERED: TUBERCULIN,PURIF.PROT.DERIV. 5 TU/0.1 ML TEST ID ONE (12:00)
[2022-05-15] MEDS: BACLOFEN 20 MG TABLET PO SCH ×2 (12:40→16:05)
[2022-05-15] MEDS: LORAZEPAM 2 MG/1 ML VIAL IV PRN ×2 (12:47→21:56)
[2022-05-15] MEDS: levETIRAcetam 500 MG TABLET PO SCH ×2 (12:47→18:50)
[2022-05-15] MEDS ORDERED: Medication Not On Formulary EA (Gabapentin 800 MG) PO SCH (13:00)
[2022-05-15] MEDS: GABAPENTIN 400 MG CAPSULE PO SCH ×3 (13:00→18:50)
[2022-05-15 15:48] VITALS: BP 103/43
[2022-05-15] MEDS ORDERED: CLOBAZAM 20 MG PO SCH (17:00)
[2022-05-15 20:19] VITALS: BP 94/45
[2022-05-15] MEDS: MIRTAZAPINE 15 MG TABLET PO SCH (21:55)
[2022-05-16 00:16] VITALS: BP 90/49
[2022-05-16] MEDS: PIPERACILLIN SODIUM/TAZOBACTAM 3.375 G in IV DEXTROSE 5% 50 ML IV SCH ×4 (02:41→18:06)
[2022-05-16] MEDS: VANCOMYCIN IV 1,250 MG in IV DEXTROSE 5% 250 ML IV SCH ×3 (04:00→20:59)
[2022-05-16 04:51] VITALS: BP 89/45
[2022-05-16] MEDS: PANTOPRAZOLE SODIUM 40 MG TABLET.DR PO SCH (05:46)
[2022-05-16] MEDS: HYDROMORPHONE 1 MG/1 ML DISP.SYRIN IV PRN ×4 (07:58→20:56)
[2022-05-16] MEDS: GABAPENTIN 400 MG CAPSULE PO SCH ×3 (08:03→16:00)
[2022-05-16] MEDS: GLUCERNA SHAKE 237 ML CAN PO SCH (08:03)
[2022-05-16] MEDS: GUAIFENESIN/DEXTROMETHORPHAN 5 ML UDC PO PRN ×2 (08:03→15:50)
[2022-05-16] MEDS: levETIRAcetam 500 MG TABLET PO SCH ×2 (08:03→16:00)
[2022-05-16] MEDS: BACLOFEN 20 MG TABLET PO SCH ×3 (08:03→16:00)
[2022-05-16 08:06] LABS: HEMATOCRIT 32.7 % (31.2-41.9); MEAN CORPUSCULAR HEMOGLOBIN 26.3 uug (24.7-32.8); MEAN CORPUSCULAR VOLUME 83.3 fL (75.5-95.3); PLATELET COUNT (AUTO) 330 K/uL (179-408)
[2022-05-16] MEDS ORDERED: CLONAZEPAM 1 MG TABLET PO PRN (08:15)
[2022-05-16 08:46] LABS: BILIRUBIN,TOTAL 0.2 mg/dL (0.2-1.0); CREATININE 0.7 mg/dL (0.6-1.3); MAGNESIUM 2.1 mg/dL (1.8-2.4); PHOSPHOROUS 3.8 mg/dL (2.5-4.9); POTASSIUM 4.2 mmol/L (3.5-5.1); TOTAL PROTEIN, SERUM 5.9 g/dL (6.4-8.2)
[2022-05-16] MEDS: LORAZEPAM 2 MG/1 ML VIAL IV PRN ×2 (10:07→20:55)
[2022-05-16 11:47] VITALS: BP 107/49
[2022-05-16] MEDS: MIDODRINE HCL 5 MG TABLET PO SCH ×2 (12:02→20:54)
[2022-05-16] MEDS: IV 1/2NS 1000 ML 1,000 ML IV PRN (16:06)
[2022-05-16] MEDS: MIRTAZAPINE 15 MG TABLET PO SCH (20:54)
[2022-05-17] MEDS: HYDROMORPHONE 1 MG/1 ML DISP.SYRIN IV PRN ×3 (03:35→14:22)
[2022-05-17] MEDS: PIPERACILLIN SODIUM/TAZOBACTAM 3.375 G in IV DEXTROSE 5% 50 ML IV SCH ×5 (06:25→12:41)
[2022-05-17] MEDS: PANTOPRAZOLE SODIUM 40 MG TABLET.DR PO SCH (06:26)
[2022-05-17] MEDS: levETIRAcetam 500 MG TABLET PO SCH ×2 (08:46→17:23)
[2022-05-17] MEDS: BACLOFEN 20 MG TABLET PO SCH ×3 (08:47→17:23)
[2022-05-17] MEDS: GABAPENTIN 400 MG CAPSULE PO SCH ×3 (08:56→17:23)
[2022-05-17] MEDS: MIDODRINE HCL 5 MG TABLET PO SCH (08:56)
[2022-05-17] MEDS: GLUCERNA SHAKE 237 ML CAN PO SCH (09:04)
[2022-05-17] MEDS: LORAZEPAM 2 MG/1 ML VIAL IV PRN (11:05)
[2022-05-17] MEDS: GUAIFENESIN/DEXTROMETHORPHAN 5 ML UDC PO PRN (11:07)
[2022-05-17 11:37] VITALS: BP 101/40
[2022-05-17] MEDS: VANCOMYCIN IV 1,250 MG in IV DEXTROSE 5% 250 ML IV SCH (13:07)
[2022-05-17 16:38] VITALS: BP 108/42
[2022-05-17] MEDS ORDERED: MIDO5TAB4 PO (17:54)
[2022-05-17] MEDS ORDERED: MAGN400O6 PO (17:54)
[2022-05-17] MEDS ORDERED: NUT.237L36 PO (17:54)
[2022-05-17] MEDS ORDERED: PIPE3.379 IV (17:54)
[2022-05-17] MEDS ORDERED: ACET325T53 PO (17:54)
[2022-05-17] MEDS ORDERED: GUAI5SYR PO (17:54)
[2022-05-17] MEDS ORDERED: HYDR1DIS2 IV (17:54)
[2022-05-17] MEDS ORDERED: CLON1TAB12 PO (17:54)
--- NOTE | 2022-05-17 18:08 | NUR ---
Pt is currently stable. She appears to be comfortable, breathing normal on room air. She is taking Dilaudid IV injection Q4hrs. Two Dilaudid given today on my shift. Patient is taking Ativan q6hr, one given, she tolerated well. Pt pending discharge to [facility]. Will continue to monitor.
--- NOTE | 2022-05-17 18:55 | NUR ---
Patient discharged to [facility]. Ambulance came to pick her at 1800. She left in stable condition. Dilaudid was not administer upon her discharge. Patient was very upset.
--- NOTE | 2022-05-17 19:01 | NUR ---
report given to Keisha at [facility]
[2022-05-17] MEDS ORDERED: VANCOMYCIN IV 1,000 MG in IV DEXTROSE 5% 250 ML IV SCH (22:00)
== END 2022-05-17 18:50 | disposition short-term general hospital (02) | DRG 559 ==
LOC: ER 01:22 → TELE3 17:08 → MEDSURG3 05-16 18:21
PROVIDERS: ADMIT Internal Medicine; ATTEND Internal Medicine
PROC: 0SWSXJZ Revision of Synthetic Substitute in Left Hip Joint, Femoral Surface, External Approach (ICD-10-PCS; principal; 2022-05-13)
PROC: 05H633Z Insertion of Infusion Device into Left Subclavian Vein, Percutaneous Approach (ICD-10-PCS; 2022-05-17)
PROC: B547ZZA Ultrasonography of Left Subclavian Vein, Guidance (ICD-10-PCS; 2022-05-17)
DX: T84.021A Dislocation of internal left hip prosthesis, initial encounter (principal); A41.9 Sepsis, unspecified organism; E43 Unspecified severe protein-calorie malnutrition; J18.9 Pneumonia, unspecified organism; N39.0 Urinary tract infection, site not specified; D68.69 Other thrombophilia; E87.6 Hypokalemia; G40.909 Epilepsy, unspecified, not intractable, without status epilepticus; M79.7 Fibromyalgia; Y79.2 Prosthetic and other implants, materials and accessory orthopedic devices associated with adverse incidents; W06.XXXA Fall from bed, initial encounter; Y93.9 Activity, unspecified; Y92.129 Unspecified place in nursing home as the place of occurrence of the external cause; Z83.3 Family history of diabetes mellitus; Z87.11 Personal history of peptic ulcer disease; F90.9 Attention-deficit hyperactivity disorder, unspecified type; F41.9 Anxiety disorder, unspecified; G89.4 Chronic pain syndrome; Z79.891 Long term (current) use of opiate analgesic; D50.9 Iron deficiency anemia, unspecified; Z74.09 Other reduced mobility; K27.9 Peptic ulcer, site unspecified, unspecified as acute or chronic, without hemorrhage or perforation; M81.0 Age-related osteoporosis without current pathological fracture; G89.11 Acute pain due to trauma; M85.80 Other specified disorders of bone density and structure, unspecified site; M46.90 Unspecified inflammatory spondylopathy, site unspecified; Z79.899 Other long term (current) drug therapy; Z20.822 Contact with and (suspected) exposure to COVID-19
CPT/HCPCS: 36415; 51702; 71045; 73502; 83550; 83605; 83735; 84100; 84484; 85025; 85730; 86580; 87040; 93005; A4663; G0378; G0500; J1170; J1630; J1885; J2060; J2270; J2543; J3370; J3490; J7040; J7050; J7070